=== PATIENT | male | born 1995 | race Hispanic/Latino ===

== ENCOUNTER 2018-07-28 13:49 | Emergency (ER) | payer OTHER ==
[2018-07-28 14:42] LABS: RAPID GROUP A STREP NEGATIVE (NEGATIVE)
== END 2018-07-28 15:04 | disposition home or self-care (01) ==
LOC: EDH 13:49
DX: J09.X2 Influenza due to identified novel influenza A virus with other respiratory manifestations (principal); Z87.891 Personal history of nicotine dependence
CPT/HCPCS: 87804; 87880